=== PATIENT | male | born 1995 | race Caucasian/White ===

== ENCOUNTER 2017-04-21 09:52 | Emergency (ER) | payer OTHER ==
[~2017-04-21] VITALS: Ht 170.2 cm; Wt 65.8 kg
--- NOTE | 2017-04-21 10:55 | ED GI/GU/ABDOMINAL COMPLAINT ---
History of Present Illness General Chief Complaint: Abdominal Pain/Flank Pain Stated Complaint: SENT BY URGENT CARE TO R/O APPENDICITIS Source: patient Exam Limitations: no limitations Vital Signs & Intake/Output Vital Signs & Intake/Output Vital Signs Date Time Temp Pulse Resp B/P B/P Pulse O2 O2 Flow FiO2 Mean Ox Delivery Rate 04/21 1319 97.5 65 16 139/73 98 Room Air 04/21 0956 98.0 78 18 141/79 97 Allergies Coded Allergies: cefaclor (From CECLOR) (HIVES 04/21/17) Reconcile Medications Dextroamphetamine/Amphetamine (Dextroamp-Amphet ER 15 MG Cap) 15 MG CAP.ER.24H 1 CAP PO QAM MENTAL HEALTH (Reported) Dicyclomine Hydrochloride (Bentyl) 10 MG CAPSULE 1 CAP PO TID GASTROENTERITIS Ondansetron HCl (Zofran) 4 MG TABLET 1 TAB PO Q6-8P PRN NAUSEA Sertraline HCl 100 MG TABLET 2 TAB PO DAILY MENTAL HEALTH (Reported) Triage Note: PT SENT TO ED BY URGENT CARE TO R/O APPENDICITIS. PT C/O RLQ PAIN, CONSTANT FOR 2.5 HOURS. WAS A 7-11/17, IS NOW 07/18. HAD +DIARRHEA PRIOR TO PAIN STARTING. ONE EPISODE OF +N/V FOLLOWED BY [facility]Y HEAVING. DENIES UTI S/S. LAST URINATED LAST NIGHT. LAST NORMAL BM WAS YESTERDAY. AFEBRILE Triage Nurses Notes Reviewed? yes Onset: Abrupt Duration: better Timing: single episode today Quality/Severity: mild Severity Numbers: 3 Location: right lower quadrant, right upper quadrant Radiation: no radiation Activities at Onset: none HPI: The patient is a 22-year-old male with a past medical history traumatic ruptured spleen 2 years ago depression and ADHD who presents emergency room stating that yesterday evening patient a quesadilla where he states that this morning he was in his normal state of health patient drank coffee and then while at work 2 hours prior to arrival patient had acute onset of nausea and 1 episode of nonbloody nonbilious emesis and loose watery diarrhea production. The patient had been symptoms of severe right abdominal pain that has significantly improved prior to arrival without medications. Patient still admits to nausea. Denies any fever chills chest pain shortness of breath back pain dysuria hematuria Patient does admit to drinking alcohol "a lot" and drank a sixpack yesterday Past History Travel History Traveled to [place] past 21 day No Medical History Any Pertinent Medical History? see below for history Neurological: NONE EENT: NONE Cardiovascular: NONE Respiratory: NONE Gastrointestinal: SPLENIC RUPTURE Hepatic: NONE Renal: NONE Musculoskeletal: NONE Psychiatric: anxiety, depression Endocrine: NONE Surgical History Surgical History: non-contributory Psychosocial History What is your primary language Guatemalan Tobacco Use: Current Daily Use Daily Tobacco Use Amount/Type: => 5 Cigarettes daily ETOH Use: occasional use Illicit Drug Use: denies illicit drug use Family History Hx Contributory? No Review of Systems Review of Systems Constitutional: Reports: see HPI. Denies: chills, fever. EENTM: Reports: no symptoms. Respiratory: Reports: no symptoms. Cardiovascular: Reports: no symptoms. GI: Reports: see HPI, abdominal pain. Genitourinary: Reports: see HPI. Musculoskeletal: Reports: no symptoms. Skin: Reports: no symptoms. Neurological/Psychological: Reports: no symptoms. Hematologic/Endocrine: Reports: no symptoms. Immunologic/Allergic: Reports: no symptoms. All Other Systems: Reviewed and Negative Physical Exam Physical Exam General Appearance: no apparent distress, alert, awake Head: atraumatic Eyes: Bilateral: normal appearance. Ears, Nose, Throat, Mouth: moist mucous membrane, Tympanic normal Neck: normal inspection Respiratory: chest non-tender, no respiratory distress Cardiovascular: regular rate/rhythm Gastrointestinal: normal bowel sounds, soft, moderate RUQ PAIN/MILD RLQ PAIN NO PERITONEAL SIGNS NO REBOUND TENDERNESS Back: normal inspection Extremities: normal range of motion Skin: intact, normal color, warm/dry Core Measures ACS in differential dx? No Sepsis Present: No Sepsis Focused Exam Completed? No Progress Differential Diagnosis: AAA, AMI, appendicitis, biliary colic, bowel obstruction , colon cancer, cholecystitis, diverticulitis, epididymitis, esophageal varices, gastritis, hepatitis, hernia, hemorrhoids, ischemic bowel, inflamm bowel dis, Ginny-David tear, orchitis, pancreatitis, prostatitis, peptic ulcer, PUD/GERD, perforated viscous, pyelonephritis, SBO, testicular torsion, ureterolithiasis, urinary retention, urethritis, UTI/pyelo Plan of Care: Orders Procedure Date/time Status LIPASE 04/21 1114 Complete WESTERGREN SED RATE 04/21 1114 Complete COMPREHENSIVE METABOLIC PANEL 04/21 111 Complete CBC WITHOUT DIFFERENTIAL 04/21 1114 Complete AMYLASE 04/21 1114 Complete Laboratory Tests 04/21/17 1123: Anion Gap 15, Estimated GFR > 60, BUN/Creatinine Ratio 15.6, Glucose 103 H, Calcium 9.7, Total Bilirubin 0.9, AST 24, ALT 32, Alkaline Phosphatase 75, Total Protein 7.5, Albumin 4.6, Globulin 2.9, Albumin/Globulin Ratio 1.6, Amylase 83, Lipase 114, CBC w Diff NO MAN DIFF REQ, RBC 4.68 L, MCV 93.2, MCH 32.1 H, RDW 13.5, MPV 7.2 L, Gran % 76.6 H, Lymphocytes % 14.9 L, Monocytes % 6.1, Eosinophils % 2.1, Basophils % 0.3, Absolute Granulocytes 7.1 H, Absolute Lymphocytes 1.4, Absolute Monocytes 0.6, Absolute Eosinophils 0.2, Absolute Basophils 0, PUBS MCHC 34.5, ESR Westergren 5 Patient on initial examination was resting comfortably bedside no apparent distress denies pain medications when offered, patient afebrile After reevaluating the patient on multiple occasions he is resting comfortably at bedside and complains of 1/10 right-sided upper and lower quadrant pain. Patient was able tolerate by mouth after blood work was resulted which I reviewed all blood work with patient and family members. I long extensive conversation with patient that if symptoms of appendicitis to occur to return to the emergency room and the CT scan was warranted and they requested to be discharged and agrees with disposition and plan Upon discharge patient looks well now appendicitis and will comply with discharge instructions and had no questions Initial ED EKG: none Departure Departure Disposition: HOME OR SELF CARE Condition: Stable Clinical Impression Primary Impression: Abdominal pain Secondary Impressions: Gastroenteritis Referrals: Jayla COELLO,Tim Ronquillo (PCP/Family) Manuel Stephens MD Additional Instructions: As discussed begin a 24-hour clear liquid and bland diet to rest bowels, if you FEEL worsening symptoms or if YOU develops new concerning symptoms such as fevers return to the emergency room. Begin the prescription of Zofran for nausea and Bentyl for your symptoms, prescription waiting at [facility]. If no better on Monday follow-up with [employer] Dr. Stephens. Departure Forms: Customer Survey General Discharge Information Prescriptions: Current Visit Scripts Dicyclomine Hydrochloride (Bentyl) 1 CAP PO TID #9 CAP Ondansetron HCl (Zofran) 1 TAB PO Q6-8P PRN NAUSEA #10 TAB
[2017-04-21 11:37] LABS: ABSOLUTE BASOPHIL COUNT 0 /CUMM (0.0-0.2); ABSOLUTE EOSINOPHIL COUNT 0.2 /CUMM (0.0-0.7); ABSOLUTE GRANULOCYTE CT 7.1 /CUMM (1.4-6.5); ABSOLUTE LYMPH COUNT 1.4 /CUMM (1.2-3.4); ABSOLUTE MONOCYTE COUNT 0.6 /CUMM (0.10-0.60); BASOPHIL % 0.3 % (0.0-2.0); EOSINOPHIL % 2.1 % (0-5); GRANULOCYTE % 76.6 % (42.2-75.2); HEMATOCRIT 43.6 % (42-52); MEAN CORPUSCULAR HGB 32.1 PG (27.0-31.0); MEAN CORPUSCULAR HGB CONC 34.5 G/DL (33.0-37.0); MEAN CORPUSCULAR VOLUME 93.2 FL (80.0-94.0); MEAN PLATELET VOLUME 7.2 FL (7.4-10.4); PLATELET COUNT 317 /CUMM (130-400); RBC DISTRIBUTION WIDTH 13.5 % (11.5-14.5); RED BLOOD CELL CT 4.68 /CUMM (4.70-6.10); WHITE BLOOD CELL COUNT 9.2 /CUMM (4.8-10.8)
[2017-04-21] MEDS ORDERED: DEXTROAMP-AMPHE15 M1 PO (11:37)
[2017-04-21] MEDS ORDERED: SERTRALINE HCL100 MG PO (11:37)
[2017-04-21] MEDS ORDERED: BENTYL10 M1 PO (13:46)
[2017-04-21] MEDS ORDERED: ZOFRAN4 M2 PO (13:46)
== END 2017-04-21 14:26 ==
LOC: ERH 09:52
PROVIDERS: Physician Assistant
DX: K52.9 Noninfective gastroenteritis and colitis, unspecified (principal)
CPT/HCPCS: 96374; J2405